=== PATIENT | female | born 1975 | race Caucasian/White ===

== ENCOUNTER 2019-06-15 17:50 | Emergency (ER) | payer OTHER ==
[~2019-06-15] VITALS: Ht 160 cm; Wt 86.2 kg
[2019-06-15 18:06] VITALS: BP_SYST 161
--- NOTE | 2019-06-15 18:08 | NUR ---
Patient triaged and placed in waiting room. VSS and patient appears in no acute distress at this time. Accompanied by mother , awaiting available bed, and MD notified of need for MSE.
--- NOTE | 2019-06-15 22:43 | NUR ---
Pt ambulatory to bed 2 for evaluation
--- NOTE | 2019-06-15 22:45 | NUR ---
Pt came to the ED for HTN for leg and arm numness with RIOS. Reports her systolic blood pressure at home was 179. Denies chest pain, SOB, n/v/d or fever. No other complaints/injuries noted. Will cont. to monitor.
--- NOTE | 2019-06-15 23:04 | NUR ---
ER at bedside examining patient.
[2019-06-15 23:57] LABS: BASOPHILS # (AUTO) 0.1 K/uL (0.0-0.2); BASOPHILS % (AUTO) 0.6 % (0.0-2.0); EOSINOPHILS # (AUTO) 0.3 K/uL (0.0-0.4); EOSINOPHILS % (AUTO) 2.4 % (0.0-4.0); HEMATOCRIT 35.5 % (36-48); HEMOGLOBIN 11.5 g/dL (12.0-16.0); LYMPHOCYTES % (AUTO) 16.8 % (20.5-51.5); MEAN CORPUSCULAR HEMOGLOBIN 27 pg (27-31); MEAN CORPUSCULAR HGB CONC 33 % (32-36); MEAN CORPUSCULAR VOLUME 82 fL (79.0-98.0); MONOCYTES # (AUTO) 0.5 K/uL (0.0-1.0); MONOCYTES % (AUTO) 4.6 % (1.7-9.3); NEUTROPHILS # (AUTO) 8.9 K/uL (1.8-7.7); NEUTROPHILS % (AUTO) 75.6 % (40.0-70.0); PLATELET COUNT (AUTO) 376 K/uL (130-430); RED BLOOD CELL COUNT(AUTO) 4.36 MIL/uL (4.2-6.2); RED CELL DISTRIBUTION WIDTH 16.2 % (9.0-15.0); WHITE BLOOD COUNT (AUTO) 11.8 K/uL (4.8-10.8)
[2019-06-16 00:08] LABS: ANION GAP 10 (5-15); CALCIUM 8.5 mg/dL (8.4-11.0); CHLORIDE 99 mmol/L (98-107); CREATININE 0.74 mg/dL (0.55-1.30); GLUCOSE 101 mg/dL (70-99); POTASSIUM 3.4 mmol/L (3.5-5.1); SODIUM SERUM 136 mmol/L (136-145); UREA NITROGEN, BLOOD 15 mg/dL (8-21)
[2019-06-16 00:16] LABS: ALANINE AMINOTRANSFERASE 30 U/L (12-78); ALBUMIN 3.6 g/dL (3.4-4.8); ASPARTATE AMINOTRANSFERASE 18 U/L (10-37); TOTAL BILIRUBIN 0.2 mg/dL (0.0-1.0)
[2019-06-16 00:17] LABS: GFR AFRICAN AMERICAN 109 mL/min (>90)
--- NOTE | 2019-06-16 00:39 | NUR ---
Dr. Malcolm at bedside speaking to patient about results.
[2019-06-16 00:51] VITALS: BP_SYST 161
--- NOTE | 2019-06-16 00:51 | NUR ---
Patient given written and verbal discharge instructions and verbalizes understanding. ER MD Dr. Malcolm discussed with patient the results and treatment provided. Patient in stable condition. ID arm band removed. Patient educated on pain management and to follow up with PMD. Pain Scale 0/10. Opportunity for questions provided and answered. Medication side effect fact sheet provided.
== END 2019-06-16 00:51 | disposition home or self-care (01) ==
LOC: SED 17:50
DX: I10 Essential (primary) hypertension (principal)
CPT/HCPCS: 36415; 70450-TC; 80053; 81025; 84484; 85025; 93005; 99284